=== PATIENT | male | born 1985 | race Caucasian/White ===

== ENCOUNTER 2024-07-30 05:30 | Emergency (ER) | payer OTHER ==
[~2024-07-30] VITALS: Ht 177.8 cm; Wt 88.6 kg
[2024-07-30 06:07] VITALS: TEMP 98.6
[2024-07-30 06:27] LABS: BASOPHILS % (AUTO) 0.5 % (0.0-2.0); EOSINOPHILS % (AUTO) 2.4 % (1.0-6.0); HEMATOCRIT 46.9 % (41-53); HEMOGLOBIN 15.9 g/dL (13.5-17.5); LYMPHOCYTES # (AUTO) 1.7 K/uL (1.0-4.8); LYMPHOCYTES % (AUTO) 18.3 % (22.0-44.0); MEAN CORPUSCULAR HEMOGLOBIN 30.7 pg (26.0-34.0); MEAN CORPUSCULAR HGB CONC 33.9 G/dL (31.0-37.0); MEAN CORPUSCULAR VOLUME 91 fL (80-100); MONOCYTES % (AUTO) 10.6 % (2.0-9.0); NEUTROPHILS # (AUTO) 6.3 K/uL (1.8-7.7); NEUTROPHILS % (AUTO) 68.2 % (40.0-70.0); PLATELET COUNT (AUTO) 249 K/uL (150-450); RED BLOOD CELL COUNT(AUTO) 5.18 MIL/uL (4.50-5.90); RED CELL DISTRIBUTION WIDTH 13.2 % (11.5-14.5); WHITE BLOOD COUNT (AUTO) 9.3 K/uL (4.5-11.0)
[2024-07-30] MEDS: LISINOPRIL 10 MG TABLET PO ONE (06:30)
[2024-07-30] MEDS: HYDROCHLOROTHIAZIDE 25 MG TABLET PO ONE (06:30)
[2024-07-30 06:46] LABS: ANION GAP 6 mmol/L (8-16); CARBON DIOXIDE 28 mmol/L (22-29); CHLORIDE 104 mmol/L (98-107); CREATININE 1.11 mg/dL (0.60-1.30); GLOMERULAR FILTR. RATE CALC > 60 mL/min (>60); GLUCOSE,RANDOM 108 mg/dL (70-110); POTASSIUM 4.6 mmol/L (3.5-5.1); SODIUM SERUM 138 mmol/L (136-145); UREA NITROGEN, BLOOD 18 mg/dL (7-18)
[2024-07-30 06:54] LABS: TROPONIN I-HIGH SENSITIVITY 24 ng/L (<76)
[2024-07-30 07:11] LABS: CREATINE KINASE, TOTAL ONLY 141 U/L (39-308)
[2024-07-30] MEDS: CloNIDine HCL 0.1 MG TABLET PO ONE (07:22)
[2024-07-30 07:44] LABS: AMPHET/METH SCREEN,URINE POSITIVE (NEGATIVE); BARBITURATE SCREEN, URINE NEGATIVE (NEGATIVE); BENZODIAZEPINES SCREEN,URINE NEGATIVE (NEGATIVE); CANNABINOID SCREEN,URINE NEGATIVE (NEGATIVE); COCAINE SCREEN,URINE NEGATIVE (NEGATIVE); METHADONE SCREEN, URINE NEGATIVE (NEGATIVE); OPIATE SCREEN,URINE NEGATIVE (NEGATIVE); PHENCYCLIDINE SCREEN,URINE NEGATIVE (NEGATIVE)
[2024-07-30 07:48] LABS: ALCOHOL, URINE DRUG SCREEN NEGATIVE (NEGATIVE)
[2024-07-30 07:50] LABS: ALCOHOL, BLOOD (SERUM) < 3 mg/dL (0-10)
[2024-07-30] MEDS: LORazepam 1 MG TABLET PO ONE (08:28)
[2024-07-30 08:34] VITALS: BP 145/88; PULSE 88; RESP 22; O2SAT 98
== END 2024-07-30 09:31 | disposition home or self-care (01) ==
LOC: EMS 05:32
DX: I10 Essential (primary) hypertension (principal)
CPT/HCPCS: 99285; 71045; 80048; 82550; 84484; 85025; 36415; 93005; 80307; G0480